=== PATIENT | male | born 2000 | race Caucasian/White ===

== ENCOUNTER 2021-05-22 19:25 | Emergency (ER) | payer SELFPAY ==
[~2021-05-22] VITALS: Ht 165.1 cm; Wt 68.0 kg
--- NOTE | 2021-05-22 19:30 | NUR ---
PT [facility] FOR SEIZURE EPISODE @ [facility]. PT PRESENTS ALERT AND ORIENTED X3. DOES NOT SHOW ANY SIGNS OF LABORED BREATHING. PT STATES HE HAS NOT DRANK WATER ALL DAY AND HAS BEEN WORKING WITH NO BREAKS. PT PLACED ON SEIZURE PRECATUTIONS, WILL MONITOR.
[2021-05-22] MEDS: IV NS 0.9% 1,000 ML BAG IV ONE (19:41)
--- NOTE | 2021-05-22 19:41 | NUR ---
egg trayer at bedside.
[2021-05-22] MEDS ORDERED: LORAZEPAM INJ 2 MG/ML VIAL ONE (19:44)
[2021-05-22] MEDS: LORAZEPAM INJ 2 MG/ML VIAL IVP ONE (19:47)
--- NOTE | 2021-05-22 19:48 | NUR ---
EMT @ BEDSIDE FOR EKG.
--- NOTE | 2021-05-22 19:49 | NUR ---
PT GOING TO CT.
--- NOTE | 2021-05-22 19:55 | NUR ---
PT RETURNED FROM CT.
[2021-05-22] MEDS: LEVETIRACETAM (500MG) 500 MG in IV NS 0.9% 100 ML IV ONE (19:57)
[2021-05-22 19:59] LABS: BASOPHILS # (AUTO) 0.1 K/uL (0.0-0.2); BASOPHILS % (AUTO) 0.5 % (0.0-2.0); EOSINOPHILS % (AUTO) 0.8 % (0.0-6.0); HEMATOCRIT 45 % (39-51); HEMOGLOBIN 15.3 g/dL (13.5-17.5); LYMPHOCYTES # (AUTO) 4.8 K/uL (0.8-4.8); LYMPHOCYTES % (AUTO) 33.5 % (20.0-44.0); MEAN CORPUSCULAR HGB CONC 34 g/dl (31.0-36.0); MEAN CORPUSCULAR VOLUME 94 fL (80-96); MONOCYTES # (AUTO) 1.2 K/uL (0.1-1.30); MONOCYTES % (AUTO) 8.6 % (2.0-12.0); NEUTROPHILS # (AUTO) 8.2 K/uL (1.8-8.9); NEUTROPHILS % (AUTO) 56.6 % (43.0-81.0); PLATELET COUNT (AUTO) 203 K/uL (150-450); RED BLOOD CELL COUNT(AUTO) 4.82 MIL/uL (4.5-6.0); WHITE BLOOD COUNT (AUTO) 14.4 K/uL (4.3-11.0)
[2021-05-22 20:09] LABS: CALCIUM, SERUM 9.3 mg/dL (8.5-10.1); CREATININE 1.4 mg/dL (0.6-1.3); POTASSIUM 3.3 mmol/L (3.5-5.1)
[2021-05-22 20:16] LABS: ALBUMIN 4.6 g/dL (3.4-5.0); BILIRUBIN,DIRECT 0.1 mg/dL (0.0-0.2); BILIRUBIN,TOTAL 0.3 mg/dL (0.2-1.0); TOTAL PROTEIN, SERUM 8.3 g/dL (6.4-8.2)
[2021-05-22] MEDS ORDERED: LEVE500T9 PO (21:01)
[2021-05-22 21:14] VITALS: BP 120/80
--- NOTE | 2021-05-22 21:14 | NUR ---
Patient discharged to home in stable condition. Written and verbal after care instructions given. Patient verbalizes understanding of instruction. Pt states he "feels alot better now". VS stable no other c/o at this time.
== END 2021-05-22 21:15 | disposition home or self-care (01) ==
LOC: ER 19:25
DX: G40.909 Epilepsy, unspecified, not intractable, without status epilepticus (principal); Z79.899 Other long term (current) drug therapy
CPT/HCPCS: 36415; 70450; 80048; 80076; 85025; 93005; 96365; 96375; 99285; J1953; J2060; J7030 ×2